=== PATIENT | male | born 1980 ===

== ENCOUNTER 2017-06-01 12:53 | Emergency (ER) | payer OTHER ==
[2017-06-01 12:54] VITALS: O2SAT 97
[2017-06-01 13:07] VITALS: BP 129/84; PULSE 105; RESP 18; TEMP 97.6
[2017-06-01] MEDS ORDERED: TDAP VACCINE 0.5 ML SUS IM ONE ×2 (13:24→13:26)
== END 2017-06-01 14:08 | disposition home or self-care (01) | DRG 605 ==
LOC: ED 12:53
DX: S61.210A Laceration without foreign body of right index finger without damage to nail, initial encounter (principal); W31.89XA Contact with other specified machinery, initial encounter; Y99.0 Civilian activity done for income or pay
CPT/HCPCS: 90715; 99283

== ENCOUNTER 2019-02-03 22:25 | Inpatient (IN) | payer BC, OTHER ==
[2019-02-03] MEDS ORDERED: HALOPERIDOL LACTATE 5 MG/ML SOL IM ONE (22:41)
[2019-02-04] MEDS ORDERED: HALOPERIDOL LACTATE 5 MG/ML SOL ONE ×2 (00:03→00:46)
[2019-02-04] MEDS ORDERED: SODIUM CHLORIDE 0.9% IV ONE (00:10)
[2019-02-04] MEDS ORDERED: DIAZEPAM 5MG/ML SOL IV PRN (00:12)
[2019-02-04 00:15] LABS: BASOPHILS % (AUTO) 1 % (0-3); EOSINOPHILS % (AUTO) 2 % (0-9); HEMATOCRIT 41 % (39-53); HEMOGLOBIN 13.8 gm/dl (13.5-17.7); LYMPHOCYTES % (AUTO) 10.4 % (10-50); MEAN CORPUSCULAR HGB CONC 33.2 gm/dl (32.0-36.0); MEAN CORPUSCULAR VOLUME 93 fL (80-100); MONOCYTES % (AUTO) 5.1 % (0-12); NEUTROPHILS % (AUTO) 81.3 % (37-80)
[2019-02-04] MEDS ORDERED: SODIUM CHLORIDE 0.9% 1000ML 1,000 ML IV NR (00:15)
[2019-02-04 00:22] LABS: BILIRUBIN,TOTAL 0.6 mg/dl (0.2-1.0); CALCIUM 8.9 mg/dl (8.5-10.1); CREATININE 1.96 mg/dl (0.80-1.30); POTASSIUM 3.7 mMol/L (3.5-5.1); TOTAL PROTEIN 7.2 gm/dl (6.4-8.2)
[2019-02-04 00:28] LABS: ALCOHOL 0.417 gm/dl (0.000-0.08)
[2019-02-04] MEDS ORDERED: HALOPERIDOL LACTATE 5 MG/ML SOL IM ONE (00:45)
[2019-02-04 01:18] LABS: APPEARANCE,URINE Slightly Cloudy; BILIRUBIN,URINE 2+ (NEGATIVE); COLOR,URINE Dark yellow; GLUCOSE, URINE (UA) TRACE (NEGATIVE); KETONES,URINE 1+ (NEGATIVE); LEUKOCYTE ESTERASE ,URINE NEGATIVE (NEGATIVE); NITRATE,URINE NEGATIVE (NEGATIVE); OCCULT BLOOD,URINE NEGATIVE (NEG-TRACE)
[2019-02-04 01:32] LABS: BACTERIA NEGATIVE (< 1+); CRYSTALS NEGATIVE (0-3 AVE/HPF); ICTOTEST,URINE POSITIVE (NEGATIVE); RBC,URINE NEG (0-3AV/HPF)
[2019-02-04 01:33] LABS: AMPHETAMINES NEGATIVE (NEGATIVE); BARBITUATES NEGATIVE (NEGATIVE); BENZODIAZEPINES NEGATIVE (NEGATIVE); CANNABINOL(THC) POSITIVE (NEGATIVE); COCAINE(COC) NEGATIVE (NEGATIVE); METHADONE NEGATIVE (NEGATIVE); METHAMPHETAMINES NEGATIVE (NEGATIVE); OPIATES(OPI) NEGATIVE (NEGATIVE); OXYCODONE(OXY) NEGATIVE (NEGATIVE); PROPOXYPHENE(PPX) NEGATIVE (NEGATIVE); TRICYCLIC ANTIDEPRESSANTS NEGATIVE (NEGATIVE)
[2019-02-04] MEDS ORDERED: LORAZEPAM 2 MG/ML SOL ONE ×2 (01:37→03:02)
[2019-02-04] MEDS: LORAZEPAM 2 MG/ML SOL IV PRN ×2 (01:39→03:04)
[2019-02-04] MEDS ORDERED: SODIUM CHLORIDE 0.9% 1000ML 1,000 ML IV ONE ×2 (02:15→03:52)
[2019-02-04] MEDS ORDERED: AMLODIPINE 5 MG TAB ONE (09:28)
[2019-02-04] MEDS ORDERED: LOSARTAN POTASSIUM 50 MG TAB ONE (09:28)
[2019-02-04] MEDS ORDERED: METFORMIN HYDROCHLORIDE 500 MG TAB ONE (09:28)
[2019-02-04] MEDS: AMLODIPINE 5 MG TAB PO SCH (09:35)
[2019-02-04] MEDS: LOSARTAN POTASSIUM 50 MG TAB PO SCH (09:40)
[2019-02-04] MEDS ORDERED: ALBUTEROL SULFATE 120 PUFF/17 GM ARO INH PRN (14:15)
[2019-02-04] MEDS: LORAZEPAM 0.5 MG TAB PO PRN ×2 (16:14→22:04)
[2019-02-04] MEDS: SODIUM CHLORIDE 0.9% 1000ML 1,000 ML IV SCH (17:08)
[2019-02-04] MEDS ORDERED: METFORMIN HYDROCHLORIDE 500 MG TAB PO SCH (17:30)
[2019-02-04] MEDS: METFORMIN HYDROCHLORIDE 500 MG TAB PO SCH (17:38)
[2019-02-04] MEDS: BUDESONIDE/FORMOTEROL 160/4.5 AER INH SCH (21:31)
[2019-02-05] MEDS: SODIUM CHLORIDE 0.9% 1000ML 1,000 ML IV SCH (01:18)
[2019-02-05 07:28] LABS: BLOOD UREA NITROGEN 5 mg/dl (7-18); CALCIUM 7.8 mg/dl (8.5-10.1); CARBON DIOXIDE 28.3 mEq/L (21-32); CHLORIDE 103 mMol/L (98-107); CREATININE 0.86 mg/dl (0.80-1.30); GLUCOSE 188 mg/dl (74-106); POTASSIUM 3.4 mMol/L (3.5-5.1); SODIUM 142 mMol/L (136-145)
[2019-02-05 07:29] LABS: ALCOHOL < 0.003 gm/dl (0.000-0.08)
[2019-02-05 08:12] VITALS: BP 164/102; PULSE 102; RESP 22; TEMP 97.8; O2SAT 97
[2019-02-05] MEDS: METFORMIN HYDROCHLORIDE 500 MG TAB PO SCH (08:16)
[2019-02-05] MEDS: LOSARTAN POTASSIUM 50 MG TAB PO SCH (08:17)
[2019-02-05] MEDS: AMLODIPINE 5 MG TAB PO SCH (08:17)
[2019-02-05] MEDS: BUDESONIDE/FORMOTEROL 160/4.5 AER INH SCH (08:19)
[2019-02-05] MEDS ORDERED: LOSARTAN POTASSIUM 50 MG TAB PO SCH (09:00)
[2019-02-05] MEDS ORDERED: AMLODIPINE 5 MG TAB PO SCH (09:00)
[2019-02-05] MEDS ORDERED: CHOLECALCIFEROL 1,000 IU TAB PO SCH (09:00)
[2019-02-05] MEDS ORDERED: CYANOCOBALAMIN 1000 MCG TAB PO SCH (09:00)
== END 2019-02-05 10:30 | disposition home or self-care (01) | DRG 775 ==
LOC: ED 22:25 → ACUTE CARE 02-04 10:02 → UNDOADMIN 02-04 10:02 → ACUTE CARE 02-04 10:12
PROVIDERS: ADMIT Family Medicine; ATTEND Family Medicine
DX: F10.920 Alcohol use, unspecified with intoxication, uncomplicated (principal); E66.01 Morbid (severe) obesity due to excess calories; E11.9 Type 2 diabetes mellitus without complications; F10.129 Alcohol abuse with intoxication, unspecified; Y90.8 Blood alcohol level of 240 mg/100 ml or more; J45.909 Unspecified asthma, uncomplicated
CPT/HCPCS: 36415; 80048; 80053; 80305; 80307; 81001; 85025; 96365; 96366; 96372; 96374; 99284; 99285; J1630; J2060; A9270-GY